=== PATIENT | male | born 1995 | race Hispanic/Latino ===

== ENCOUNTER 2019-08-17 08:12 | Emergency (ER) | payer SELFPAY ==
--- NOTE | 2019-08-17 10:20 | ER ---
Nurse's Notes [facility] Name: Braden Robles III Age: 24 yrs Sex: Male : 1995 Arrival Date: 08/17/2019 Time: 08:14 Bed 12 Private MD: Diagnosis: Acute bronchitis Presentation: 08/17 08:44 Presenting complaint: Patient states: "I woke up this morning, coughing, and I spit up ss a lot of blood." Pt also reports blood tinged sputum since then. Transition of care: patient was not received from another setting of care. Onset of symptoms was August 17, 2019. Risk Assessment: Do you want to hurt yourself or someone else? Patient reports no desire to harm self or others. Initial Sepsis Screen: Does the patient meet any 2 criteria? No. Patient's initial sepsis screen is negative. Does the patient have a suspected source of infection? No. Patient's initial sepsis screen is negative. Care prior to arrival: None. 08:44 Method Of Arrival: Ambulatory ss 08:44 Acuity: CARLOS 4 ss Historical: - Allergies: 08:45 No Known Allergies; ss - Home Meds: 08:45 None [Active]; ss - PMHx: 08:45 None; ss - PSHx: 08:45 None; ss - Immunization history:: Adult Immunizations unknown. - Social history:: Smoking status: Patient/guardian denies using tobacco. - Ebola Screening: : Patient denies exposure to infectious person Patient denies travel to an Ebola-affected area in the 21 days before illness onset. Screenin:59 Abuse screen: Denies threats or abuse. Denies injuries from another. Nutritional ss screening: No deficits noted. Tuberculosis screening: Never had TB. Fall Risk None identified. Assessment: 08:59 General: Appears in no apparent distress. comfortable, Behavior is calm, cooperative, ss Denies fever, feeling ill, fatigue, chills. Pain: Denies pain. Neuro: Level of Consciousness is awake, alert, obeys commands, Oriented to person, place, time, situation. Cardiovascular: Capillary refill < 3 seconds is brisk in bilateral fingers. Respiratory: Reports cough that is hacking, persistent since "a few days" blood tinged sputum since this AM Airway is patent Trachea midline Respiratory effort is even, unlabored, Respiratory pattern is regular, symmetrical. Respiratory: Breath sounds are clear bilaterally. Denies shortness of breath labored breathing, pain with respiration, pain with cough, pain with movement. GI: No signs and/or symptoms were reported involving the gastrointestinal system. EENT: Nares are clear. Derm: Skin is intact, is healthy with good turgor, Skin is pink, warm \\T\\ dry. normal. Musculoskeletal: Circulation, motion, and sensation intact. Capillary refill < 3 seconds, is brisk, in bilateral fingers. 10:30 Reassessment: Patient appears in no apparent distress at this time. Patient and/or ss family updated on plan of care and expected duration. Pain level reassessed. Patient is alert, oriented x 3, equal unlabored respirations, skin warm/dry/pink. Vital Signs: 08:45 BP 134 / 86; Pulse 76; Resp 15; Temp 97.5(TE); Pulse Ox 97% on R/A; Weight 136.08 kg; ss Height 5 ft. 9 in. (175.26 cm); Pain 0/10; 08:45 Body Mass Index 44.30 (136.08 kg, 175.26 cm) ED Course: 08:14 Patient arrived in ED. ag5 08:45 Triage completed. ss 08:45 Arm band placed on left wrist. ss 08:53 Dirk Miller PA is PHCP. cp 08:53 Dirk Amin MD is Attending Physician. cp 08:59 Patient has correct armband on for positive identification. Bed in low position. Call ss light in reach. 09:24 Joan Greenfield RN is Primary Nurse. 09:37 XRAY Chest Pa And Lat (2 Views) In Process Unspecified. EDMS 10:52 No provider procedures requiring assistance completed. Patient did not have IV access ss during this emergency room visit. Administered Medications: No medications were administered Outcome: 10:20 Discharge ordered by MD. cp 10:52 Discharged to home ambulatory, with significant other. ss 10:52 Condition: good 10:52 Discharge instructions given to patient, family, Instructed on discharge instructions, follow up and referral plans. medication usage, Demonstrated understanding of instructions, follow-up care, medications, Prescriptions given X 3. 10:52 Patient left the ED. Signatures: Dispatcher [employer] EDPR Joan Greenfield RN RN Dirk Miller PA PA cp Nils, Marcus ag5
--- NOTE | 2019-08-17 10:21 | EDPHYS ---
Physician Documentation [facility] Name: Braden Robles III Age: 24 yrs Sex: Male : 1995 Arrival Date: 08/17/2019 Time: 08:14 Bed 12 Private MD: ED Physician Dirk Amin HPI: 08/17 09:10 This 24 yrs old Male presents to ER via Ambulatory with complaints of Blood In cp Cough. 09:10 The patient or guardian reports cough, with productive sputum, that is purulent, with cp blood. 09:10 Onset: The symptoms/episode began/occurred 1 week(s) ago, noticed blood this morning. cp Associated signs and symptoms: Pertinent positives: sore throat, Pertinent negatives: chest pain, diarrhea, ear ache, fever, vomiting. Severity of symptoms: in the emergency department the symptoms have improved mildly. recently diagnosed and treated for influenza. Historical: - Allergies: 08:45 No Known Allergies; ss - Home Meds: 08:45 None [Active]; ss - PMHx: 08:45 None; ss - PSHx: 08:45 None; ss - Immunization history:: Adult Immunizations unknown. - Social history:: Smoking status: Patient/guardian denies using tobacco. - Ebola Screening: : Patient denies exposure to infectious person Patient denies travel to an Ebola-affected area in the 21 days before illness onset. ROS: 09:15 Constitutional: Negative for body aches, chills, fever, poor PO intake. cp 09:15 Eyes: Negative for injury, pain, redness, and discharge. cp 09:15 ENT: Negative for drainage from ear(s), ear pain, sore throat, difficulty swallowing, difficulty handling secretions. 09:15 Cardiovascular: Negative for chest pain, edema. 09:15 Respiratory: Positive for cough, hemoptysis, Negative for shortness of breath, wheezing. 09:15 Abdomen/GI: Negative for abdominal pain, nausea, vomiting, and diarrhea. 09:15 Back: Negative for radiated pain. 09:15 Skin: Negative for rash. 09:15 Neuro: Negative for altered mental status, headache, weakness. 09:15 All other systems are negative. Exam: 09:38 Head/Face: Normocephalic, atraumatic. cp 09:38 Constitutional: The patient appears in no acute distress, alert, awake, non-toxic, well developed, well nourished, obese. 09:38 Eyes: Periorbital structures: appear normal, Conjunctiva: normal, no exudate, no injection, Lids and lashes: appear normal, bilaterally. 09:38 ENT: External ear(s): are unremarkable, Ear canal(s): are normal, clear, TM's: bulging, is not appreciated, bilaterally, dullness, bilaterally, erythema, is not appreciated, bilaterally, Nose: is normal, Mouth: Lips: moist, Oral mucosa: moist, Posterior pharynx: Airway: no evidence of obstruction, patent, Tonsils: no enlargement, no exudate, erythema, that is mild, exudate, is not appreciated. 09:38 Neck: ROM/movement: is normal, is supple, no meningismus, no nuchal rigidity, Lymph nodes: no appreciated lymphadenopathy. 09:38 Chest/axilla: Inspection: normal, Palpation: is normal, no crepitus, no tenderness. 09:38 Cardiovascular: Rate: normal, Rhythm: regular. 09:38 Respiratory: the patient does not display signs of respiratory distress, Respirations: normal, no use of accessory muscles, no retractions, no splinting, no tachypnea, labored breathing, is not present, Breath sounds: decreased breath sounds, are not appreciated, stridor, is not appreciated, wheezing: is not appreciated. 09:38 Abdomen/GI: Inspection: abdomen appears normal. Vital Signs: 08:45 BP 134 / 86; Pulse 76; Resp 15; Temp 97.5(TE); Pulse Ox 97% on R/A; Weight 136.08 kg; ss Height 5 ft. 9 in. (175.26 cm); Pain 0/10; 08:45 Body Mass Index 44.30 (136.08 kg, 175.26 cm) ss MDM: 08:56 Patient medically screened. cp 10:20 Data reviewed: vital signs, nurses notes, radiologic studies, plain films. cp 10:20 Differential diagnosis: bronchitis, flu, pneumonia. Antibiotic administration: The cp patient is discharged and will get outpatient antibiotics, Zithromax. Test interpretation: by ED physician or midlevel provider: plain radiologic studies, chest xray negative for infiltrates. Counseling: I had a detailed discussion with the patient and/or guardian regarding: the historical points, exam findings, and any diagnostic results supporting the discharge/admit diagnosis, radiology results, to return to the emergency department if symptoms worsen or persist or if there are any questions or concerns that arise at home. 08/17 09:03 Order name: XRAY Chest Pa And Lat (2 Views); Complete Time: 10:46 cp Administered Medications: No medications were administered Disposition: 08/17/19 10:20 Discharged to Home. Impression: Acute bronchitis. - Condition is Stable. - Discharge Instructions: Acute Bronchitis, Adult. - Prescriptions for Tessalon Perles 100 mg Oral Capsule - take 2 capsule by ORAL route every 8 hours As needed; 30 capsule. Zithromax Z- Dimitry 250 mg Oral Tablet - take 1 tablet by ORAL route as directed for 5 days Day 1 - take two (2) tablets one time. Day 2, 3, 4 , 5 take one (1) tablet once daily.; 6 tablet. Albuterol Sulfate 90 mcg/actuation - inhale 1-2 puff by INHALATION route every 4-6 hours; 1 Inhaler. - Medication Reconciliation Form, Thank You Letter, Antibiotic Education, Prescription Opioid Use, Work release form form. - Follow up: Private Physician; When: 2 - 3 days; Reason: Worsening of condition. - Problem is new. - Symptoms have improved. Addendum: 08/20/2019 08:08 Co-signature as Attending Physician, Dirk Amin MD I agree with the assessment and c hubbard plan of care. Signatures: Dispatcher [employer] [facility] Dirk Amin MD MD cha Smirch, Shelby, RN RN ss Dirk Miller PA PA cp Corrections: (The following items were deleted from the chart) 08/17 09:11 08:47 Chest Single View+RAD.[email or web address].[email or web address] ordered. [facility] 10:52 10:20 08/17/2019 10:20 Discharged to Home. Impression: Acute bronchitis. Condition is ss Stable. Forms are Medication Reconciliation Form, Thank You Letter, Antibiotic Education, Prescription Opioid Use. Follow up: Private Physician; When: 2 - 3 days; Reason: Worsening of condition. Problem is new. Symptoms have improved. cp 08/18 07:47 08/16 09:10 This 24 yrs old Male presents to ER via Ambulatory with complaints cp of Blood In Cough. cp 08/18 20:48 The patient or guardian reports cough, that is intermittent, with cp productive sputum, that is bloody, cp 08/18 20:48 Onset: The symptoms/episode began/occurred 1 week(s) ago, cp cp 08/18 20:48 Associated signs and symptoms: Pertinent negatives: chest pain, fever, sore cp throat, vomiting, cp 08/18 20:48 recently diagnosed and treated for influenza. cp cp
--- NOTE | 2019-08-17 10:43 | RAD REPORT ---
EXAM DESCRIPTION: RAD - Chest Pa And Lat (2 Views) - 08/17/2019 9:38 am CLINICAL HISTORY: Cough;Hemoptysis COMPARISON: No comparisons TECHNIQUE: Frontal and lateral views of the chest were obtained. FINDINGS: The lungs are clear of a focal mass or infiltrate. Interstitial markings are mildly promin ent believed to be effects of slightly shallow inspiration and body habitus. No failure or volume ove rload. Heart size is normal and central vasculature is within normal limits. No pleural effusion or pneu mothorax seen. No acute bony finding noted. No aortic abnormality. IMPRESSION: No acute cardiopulmonary process.
[2019-08-17 10:58] VITALS: BP 134/86; TEMP 97.5; O2SAT 97
== END 2019-08-17 10:52 | disposition home or self-care (01) ==
LOC: ER 08:12
DX: J20.9 Acute bronchitis, unspecified (principal)
CPT/HCPCS: 71046; 99283